=== PATIENT | male | born 1950 | race Caucasian/White ===

== ENCOUNTER 2016-08-25 08:12 | Inpatient (IN) | payer BC ==
[2016-08-25] VITALS (854 sets, daily range): BP systolic 114–141; BP diastolic 84–93; PULSE 82–123; TEMP 98–98.3; O2SAT 91–100
[~2016-08-25] VITALS: Ht 188 cm; Wt 87.5 kg
[~2016-08-25 08:12] MED LIST: ELIQUIS 5MG PO; TAMBOCOR 1100 MG/TAB PO; TAMBOCOR150 MG PO; TAMBOCOR50 MG PO
[2016-08-25 09:17] LABS: CALCIUM 8.9 mg/dL (8.4-10.2); CREATININE, serum 0.99 mg/dL (0.66-1.25); MAGNESIUM 2.1 mg/dL (1.6-2.3); POTASSIUM 4.1 mmol/L (3.4-5.0)
[2016-08-25 10:32] LABS: INFLUENZA B NEGATIVE
[2016-08-26] VITALS (515 sets, daily range): BP systolic 103–122; BP diastolic 50–90; PULSE 63–120; TEMP 97.4–98.5; O2SAT 93–100
[2016-08-26 06:22] LABS: CREATININE, serum 0.9 mg/dL (0.66-1.25); MAGNESIUM 2.2 mg/dL (1.6-2.3)
[2016-08-27 03:30] VITALS: BP 111/51; PULSE 59; TEMP 97.8
[2016-08-27 08:22] LABS: CREATININE, serum 0.99 mg/dL (0.66-1.25); MAGNESIUM 2.3 mg/dL (1.6-2.3); POTASSIUM 4.3 mmol/L (3.4-5.0)
[2016-08-27 09:32] VITALS: BP 110/65; PULSE 59; TEMP 97.7
[2016-08-27] MEDS ORDERED: TIKOSYN0.125 MG PO (11:56)
[2016-08-27 11:57] VITALS: BP 128/71; PULSE 54; TEMP 97.7
== END 2016-08-27 13:06 | disposition home or self-care (01) | DRG 310 ==
LOC: IMCU 08:12 → MEDICAL 08-26 12:08
PROVIDERS: Internal Medicine Cardiovascular Disease
PROC: 5A2204Z Restoration of Cardiac Rhythm, Single (ICD-10-PCS; principal; 2016-08-26)
DX: I48.0 Paroxysmal atrial fibrillation (principal)
CPT/HCPCS: J2405; J2704

== ENCOUNTER 2019-02-04 09:04 | Day surgery (SDC) | payer MEDICARE, BC ==
[~2019-02-04] VITALS: Ht 188.1 cm; Wt 83.9 kg
[~2019-02-04 09:04] MED LIST changes: +FLEXERIL 1010 MG/TAB PO; +TIKOSYN0.125 MG PO
[2019-02-04] MEDS ORDERED: ELIQUIS 5MG PO (09:25)
[2019-02-04] MEDS ORDERED: TOPROL XL 25MG25 MG PO ×2 (09:26→11:40)
[2019-02-04 10:07] VITALS: BP 142/95; PULSE 79; TEMP 97.8
[2019-02-04 10:08] LABS: HEMATOCRIT 40.1 % (42.0-52.0); HEMOGLOBIN 13.1 g/dl (13.5-18.0); MEAN CELL VOLUME 90 fl (80.0-100.0); MEAN CORPUSCULAR HEMOGLOBIN 29 pg (27.0-31.0); MEAN CORPUSCULAR HGB CONC 33 g/dl (33.0-37.0); MEAN PLATELET VOLUME 9.4 fl (7.4-10.4); PLATELET COUNT 177 K/mm3 (130-400); RED BLOOD COUNT 4.47 M/mm3 (4.20-5.60); REDCELL DISTRIBUTION WIDTH-CV 12.6 % (11.5-14.5)
[2019-02-04 10:20] LABS: PROTHROMBIN TIME 12.2 SECONDS (9.7-12.8)
[2019-02-04 10:22] LABS: CALCIUM 8.8 mg/dL (8.4-10.2); CREATININE, serum 0.85 (0.66-1.25); POTASSIUM 4.5 mmol/L (3.4-5.0)
[2019-02-04 12:10] VITALS: BP 105/73; PULSE 54
--- NOTE | 2019-02-04 12:10 | NUR ---
PT IS AWAKE AND ALERT, POST EKG WAS DONE AND WAS REVIEWED BY DR MCELROY. IN ROOM, NO C/O
[2019-02-04 12:25] VITALS: BP 110/76; PULSE 54
[2019-02-04 12:40] VITALS: BP 119/78; PULSE 54
--- NOTE | 2019-02-04 12:40 | NUR ---
PT TAKES WATER AND JELLO/PUDDING. REVIEWED DISCHARGE INST. WITH PT AND . PT HAS NEXT APPT, WILL SAUSAGE WRAPPER NEW RX AT PHARMACY, REVIEWED ACTIVITY AND PRECAUTIONS WITH VERBAL UNDERSTANDING.
[2019-02-04 13:00] VITALS: BP 125/75; PULSE 55
--- NOTE | 2019-02-04 13:00 | NUR ---
[facility] INTACT, PT SAT ON SIDE OF BED DRESSED, THEN DISCHARGED VIA W/C TO CAR WITH
== END 2019-02-04 13:00 | disposition home or self-care (01) ==
LOC: COL.CAR 09:04
PROVIDERS: Internal Medicine Cardiovascular Disease
DX: I48.1 Persistent atrial fibrillation (principal); I34.0 Nonrheumatic mitral (valve) insufficiency; Z82.49 Family history of ischemic heart disease and other diseases of the circulatory system; Z79.01 Long term (current) use of anticoagulants
CPT/HCPCS: J2704